=== PATIENT | male | born 1945 | race Caucasian/White ===

== ENCOUNTER 2022-07-17 14:30 | Emergency (ER) | payer OTHER, MEDICARE ==
[2022-07-17 15:28] VITALS: BP 150/89; PULSE 81
[2022-07-17 16:06] LABS: BASOPHILS ABSOLUTE AUTO 0.06 K/uL (0.00-0.10); BASOPHILS PERCENT AUTO 0.9 % (0.1-1.3); EOSINOPHILS ABSOLUTE AUTO 0.46 K/uL (0.00-0.40); EOSINOPHILS PERCENT AUTO 7.1 % (0.0-5.4); HEMOGLOBIN 16.5 g/dL (12.9-16.9); IMMATURE GRAN ABSOLUTE AUTO 0.05 K/uL (0.00-0.23); IMMATURE GRAN PERCENT AUTO 0.8 % (0.0-0.7); LYMPHOCYTES ABSOLUTE AUTO 1.92 K/uL (0.8-3.3); LYMPHOCYTES PERCENT AUTO 29.4 % (11.4-47.7); MEAN CORPUSCULAR HEMOGLOBIN 33.5 pg (31.6-35.5); MEAN CORPUSCULAR HGB CONC 35.9 g/dL (31.6-35.5); MEAN CORPUSCULAR VOLUME 93.3 fL (81.4-99.0); MONOCYTES ABSOLUTE AUTO 0.69 K/uL (0.20-0.90); MONOCYTES PERCENT AUTO 10.6 % (3.3-12.6); NEUTROPHILS ABSOLUTE AUTO 3.34 K/uL (1.0-7.6); NEUTROPHILS PERCENT AUTO 51.2 % (40.0-78.1); PLATELET COUNT,PLT 188 K/uL (130-375); RED BLOOD CELL COUNT 4.93 M/uL (4.14-5.76); WHITE BLOOD CELL COUNT,WBC 6.5 K/uL (3.2-11.0)
[2022-07-17 16:27] LABS: PROTHROMBIN TIME 10.3 sec (9.2-10.6); PTT,PARTIAL THROMBOPLSTIN TIME 25.6 sec (21.8-27.3)
[2022-07-17 16:34] LABS: APPEARANCE,URINE CLEAR (CLEAR); BILIRUBIN,URINE NEGATIVE (NEGATIVE); COLOR,URINE YELLOW (YELLOW); GLUCOSE,URINE NEGATIVE (NEGATIVE); KETONES,URINE NEGATIVE (NEGATIVE); LEUKOCYTE ESTERASE,URINE NEGATIVE (NEGATIVE); NITRITE,URINE NEGATIVE (NEGATIVE); OCCULT BLOOD,URINE NEGATIVE (NEGATIVE); PROTEIN,URINE NEGATIVE (NEGATIVE); UROBILINOGEN,URINE 0.2 EU/dL (0.2-1.0)
[2022-07-17 16:37] LABS: A/G RATIO 0.9 (1.2-2.2); ALANINE AMINOTRANSFERASE,ALT 76 U/L (12-78); ALBUMIN 3.2 g/dL (3.4-5.0); ALKALINE PHOSPHATASE 89 U/L (46-116); ASPARTATE AMNIOTRANSFERASE,AST 68 U/L (15-37); BILIRUBIN TOTAL 0.5 mg/dL (0.2-1.0); BLOOD UREA NITROGEN,BUN 16 mg/dL (7-18); CARBON DIOXIDE,CO2 26 mmol/L (21-32); CHLORIDE,CL 101 mmol/L (100-108); ESTIMATED GFR 78 mL/min (>60); GLUCOSE RANDOM 137 mg/dL (74-106); PROTEIN TOTAL,TP 6.9 g/dL (6.4-8.2); SODIUM,NA 136 mmol/L (140-148); TROPONIN I HIGH SENSITIVITY 10.5 pg/mL (<=60.3); TSH ULTRASENSITIVE 0.384 uIU/mL (0.358-3.740)
[2022-07-17 16:44] LABS: LYME AB IgG Negative (Negative); LYME AB IgM Negative (Negative)
[2022-07-17 16:45] LABS: BACTERIA,URINE RARE; EPITHELIAL CELLS,URINE RARE; RBC,URINE 0-5 (0-5); WBC,URINE 0-5 (0-5)
[2022-07-17 16:46] LABS: AMORPHOUS SEDIMENT,URINE NOT SEEN; MUCUS,URINE RARE
[2022-07-17 16:49] LABS: SEDIMENTATION RATE MANUAL 13 mm/hr (0-20)
== END 2022-07-17 17:44 | disposition home or self-care (01) ==
LOC: JP.ED 14:30
DX: D72.10 Eosinophilia, unspecified (principal); G47.33 Obstructive sleep apnea (adult) (pediatric); R53.83 Other fatigue; I10 Essential (primary) hypertension; Z79.899 Other long term (current) drug therapy
CPT/HCPCS: 36415; 71045; 80053; 81001; 83880; 84443; 84484; 85025; 85610; 85651; 85730; 86618; 93005; 99284

== ENCOUNTER 2023-09-22 16:44 | Emergency (ER) | payer OTHER, MEDICARE ==
[2023-09-22] MEDS: EPINEPHrine 1 MG/ML SDV IM ONE (16:54)
[2023-09-22] MEDS: methylPREDNISolone Sodium Succinate 125 MG/2 ML SDV IVPUSH ONE (16:54)
[2023-09-22] MEDS: Famotidine 20 MG/2 ML SDV IVPUSH ONE (16:55)
[2023-09-22] MEDS: Sodium Chloride 0.9% 1,000 ML IV ONE (16:55)
[2023-09-22] MEDS: Hydrocortisone 1% Crm 30 GM Tube TOP PRN (18:35)
[2023-09-22 19:07] VITALS: BP 150/99; PULSE 90
== END 2023-09-22 18:55 | disposition home or self-care (01) ==
LOC: JP.ED 16:44
DX: T78.40XA Allergy, unspecified, initial encounter (principal); I10 Essential (primary) hypertension; Z79.899 Other long term (current) drug therapy
CPT/HCPCS: 96361; 96372; 96374; 96375; 99283; A9270; J0171; J2919; J3490; J7030